=== PATIENT | male | born 1950 | race Caucasian/White ===

== ENCOUNTER 2017-10-12 07:07 | Emergency (ER) | payer OTHER, MEDICARE ==
[~2017-10-12] VITALS: Ht 182.9 cm; Wt 107.0 kg
[2017-10-12 11:19] LABS: CHLORIDE 105 mEq/L (98-107)
[2017-10-12 11:26] LABS: BASOPHILS % 1.3 % (0.0-2.0); EOSINOPHILS % 0.6 % (0.0-5.0); HEMATOCRIT. 41.6 % (42.0-52.0); LYMPHOCYTES % 25.3 % (20.0-50.0); MEAN CORPUSCULAR VOLUME 83.4 fL (80.0-94.0); MEAN PLATELET VOLUME 8.4 fl (7.4-10.4); MONOCYTES % 12.5 % (2.0-8.0); NEUTROPHILS % 60.3 % (40.0-76.0); PLATELET 307 x1000/uL (130-400); RED BLOOD CELL COUNT 4.99 mill/uL (4.7-6.1); RED CELL DISTRIBUTION WIDTH 15.3 % (11.6-14.6)
[2017-10-12 11:31] LABS: INR 1.2; PROTHROMBIN TIME 12.7 sec (9.4-11.6)
[2017-10-12] MEDS ORDERED: FUROSEMIDE 40MG/4ML VIAL IV ONE (11:45)
[2017-10-12] MEDS ORDERED: ASPIRIN 81MG TABLET PO ONE (11:45)
[2017-10-12] MEDS ORDERED: DILTIAZEM HCL 240MG ER (24HR) PO ONE (12:00)
[2017-10-12] MEDS ORDERED: FUROSEMIDE 40MG TABLET PO ONE (12:30)
[2017-10-12] MEDS ORDERED: DILTIAZEM HCL 240MG ER (24HR) PO SCH (12:35)
[2017-10-12 13:43] VITALS: BP 150/115
== END 2017-10-12 13:52 | disposition left against medical advice (07) ==
LOC: ER 07:34
DX: I11.0 Hypertensive heart disease with heart failure (principal); I50.9 Heart failure, unspecified; E78.00 Pure hypercholesterolemia, unspecified; Z96.659 Presence of unspecified artificial knee joint
CPT/HCPCS: 36415; 71045; 80053; 83880; 84484; 85025; 85610; 93005; 99291

== ENCOUNTER 2020-01-03 09:31 | Emergency (ER) | payer BC, OTHER ==
[~2020-01-03] VITALS: Ht 180.3 cm; Wt 100.0 kg
[2020-01-03 09:39] VITALS: BP 167/109
[2020-01-03 11:24] LABS: BASOPHILS % 1.2 % (0.0-2.0); EOSINOPHILS % 0.7 % (0.0-5.0); HEMATOCRIT. 40.2 % (42.0-52.0); HEMOGLOBIN. 13.7 g/dL (14.0-18.0); LYMPHOCYTES % 15.3 % (20.0-50.0); MEAN CORPUSCULAR HEMOGLOBIN 28.6 pg (28.0-32.0); MEAN CORPUSCULAR VOLUME 83.8 fL (80.0-94.0); MEAN PLATELET VOLUME 8.4 fl (7.4-10.4); MONOCYTES % 10.8 % (2.0-8.0); PLATELET 242 x1000/uL (130-400); RED CELL DISTRIBUTION WIDTH 15.5 % (11.6-14.6)
[2020-01-03 11:32] LABS: CHLORIDE 105 mEq/L (98-107)
[2020-01-03 11:37] LABS: INR 1.1; PROTHROMBIN TIME 11.9 sec (9.6-11.0)
[2020-01-03] MEDS ORDERED: ASPIRIN 325MG EC TABLET PO ONE (11:45)
[2020-01-03] MEDS ORDERED: NITROGLYCERIN OINT 1GM/INCH UDPKT TD ONE (11:45)
[2020-01-03 11:58] LABS: CLARITY URINE CLEAR (CLEAR); COLOR URINE YELLOW (YELLOW); KETONES URINE NEGATIVE (NEGATIVE); LEUKOCYTE ESTERASE URINE TRACE (NEGATIVE); NITRITE URINE NEGATIVE (NEGATIVE); OCCULT BLOOD URINE 3+ (NEGATIVE); PH URINE 5.5 (4.5-8.0); PROTEIN URINE 1+ (NEGATIVE)
== END 2020-01-03 14:03 | disposition left against medical advice (07) ==
LOC: ER 10:09 → CANBEDREQ 14:15
DX: I11.0 Hypertensive heart disease with heart failure (principal); I50.21 Acute systolic (congestive) heart failure; I24.9 Acute ischemic heart disease, unspecified; R06.02 Shortness of breath; I48.91 Unspecified atrial fibrillation; Z96.659 Presence of unspecified artificial knee joint
CPT/HCPCS: 36415; 71045; 80053; 81003; 83880; 84484; 85025; 93005; 99285

== ENCOUNTER 2020-04-20 20:18 | Emergency (ER) | payer BC, OTHER ==
[~2020-04-20] VITALS: Ht 175.3 cm; Wt 104.0 kg
[~2020-04-20 20:18] MED LIST: APIX5TAB MT; ASPI-1497 MT; COR3 MT; DILT30TA38 MT; FURO-151 MT; LOSA50TA3 MT
[2020-04-20 20:26] VITALS: BP 140/90
[2020-04-21 00:12] LABS: BASOPHILS % 1.5 % (0.0-2.0); EOSINOPHILS % 0.7 % (0.0-5.0); HEMATOCRIT. 43.4 % (42.0-52.0); HEMOGLOBIN. 14.1 g/dL (14.0-18.0); LYMPHOCYTES % 30.3 % (20.0-50.0); MEAN CORPUSCULAR HEMOGLOBIN 27.5 pg (28.0-32.0); MEAN CORPUSCULAR VOLUME 84.8 fL (80.0-94.0); MEAN PLATELET VOLUME 8.5 fl (7.4-10.4); MONOCYTES % 12.1 % (2.0-8.0); NEUTROPHILS % 55.4 % (40.0-76.0); PLATELET 296 x1000/uL (130-400); RED BLOOD CELL COUNT 5.12 mill/uL (4.7-6.1); RED CELL DISTRIBUTION WIDTH 17.9 % (11.6-14.6)
[2020-04-21 00:15] LABS: CHLORIDE 106 mEq/L (98-107)
[2020-04-21 00:23] LABS: ETHANOL BLOOD < 10 mg/dL
[2020-04-21] MEDS ORDERED: FUROSEMIDE 40MG/4ML VIAL IVP NR (01:45)
[2020-04-21] MEDS ORDERED: ASPIRIN 325MG TABLET PO NR (01:45)
== END 2020-04-21 01:05 | disposition left against medical advice (07) ==
LOC: ER 20:18
DX: I11.0 Hypertensive heart disease with heart failure (principal); I50.9 Heart failure, unspecified; R77.8 Other specified abnormalities of plasma proteins; Z79.899 Other long term (current) drug therapy; Z79.82 Long term (current) use of aspirin
CPT/HCPCS: 36415; 71045; 80053; 80320; 82140; 83605; 83880; 84443; 84484; 85025; 99284; G0480